=== PATIENT | female | born 2000 | race Caucasian/White ===

== ENCOUNTER 2024-08-03 16:03 | Emergency (ER) | payer BC, SELFPAY ==
[2024-08-03 16:30] VITALS: BP 130/87; PULSE 95; RESP 19; TEMP 37.4; O2SAT 99; BMI 30.6
--- NOTE | 2024-08-03 16:31 | EXP.UTC ---
Discharge Plan Disposition Patient Disposition: Home, Self-Care Condition: Good Prescriptions Prescriptions: New ondansetron 4 mg Tablet,Disintegrating 4 mg PO Q8H PRN (Reason: Nausea) Qty: 12 0RF Referrals Follow up/Referrals: Provider,Referral, MD [Primary Care Provider] - See instructions Activity Restrictions/Add. Instructions Additional Instructions/Restrictions: Drink plenty of fluids. Take the zofran (ondesetron) as directed for nausea. Follow up with your regular doctor. GO TO THE ER FOR ANY WORSENING SYMPTOMS Clinical Impressions Clinical Impression: Gastroenteritis, Diarrhea Stand Alone Forms Stand Alone Forms: Work/School Release Instructions Patient Instructions: Diarrhea, DI for Viral Gastroenteritis -- Adult, Ondansetron Print Language Print Language: Indonesian Discharge ED Provider: Kenneth Gomez [facility] [place] General Stated complaint: diarrhea, vomiting, h/a Time Seen by Provider: 08/03/24 16:31 History of Present Illness Provider Complaint: She states that for the past 5 weeks she has had diarrhea. She denies any blood in her stool. Over the past 2 days she has had n/v also. She denies any fever/chills. She denies any abdominal pain, but she has had cramping r/t the diarrhea. Related Data Previous Rx's ?Medication ?Instructions ?Recorded ondansetron 4 mg disintegrating 4 mg PO Q8H PRN Nausea #12 tabs 08/03/24 tablet Allergies Allergy/AdvReac Type Severity Reaction Status Date / Time No Known Allergies Allergy Verified 08/03/24 16:39 [facility] Disclaimer: The information contained in this section may have been updated after the patient was seen, as this information can be updated by other users. Medical History (Updated 08/03/24 @ 17:11 by Kenneth Gomez APRN) Asthma Surgical History (Updated 08/03/24 @ 16:39 by Tari Baer RN) History of tympanostomy tube placement History of tonsillectomy Social History Smoking Status: Never smoker alcohol intake: never current occupational status: employed Travel in the last 8 weeks: None ROS Obtained: Yes All systems reviewed & no additional complaints except as documented Constitutional Constitutional: Denies chills, Denies fever(s) and Reports poor appetite ENT Ears, Nose, Mouth, and Throat: Denies dizziness and Denies sore throat Cardiovascular Cardiovascular: Denies dyspnea Respiratory Respiratory: Denies chest congestion, Denies cough and Denies dyspnea Gastrointestinal Gastrointestingal: Reports as per HPI; Denies abdominal pain Genitourinary Female Genitourinary: Denies difficulty voiding, Denies dysuria, Denies hematuria, Denies urinary frequency, Denies urinary incontinence, Denies urinary hesitancy and Denies urinary urgency Musculoskeletal Musculoskeletal: Denies arthralgias Integumentary/Breasts Skin/Breast: Denies rash Neurologic Neurologic: Denies dizziness Physical Exam General General appearance: alert and in no apparent distress Head Head exam: atraumatic and normocephalic Eye Eye exam: Present normal appearance, PERRL and EOMI ENT ENT exam: Present normal exam, normal oropharynx, mucous membranes moist, TM's normal bilaterally and normal external ear exam Neck Neck exam: Present normal inspection, full ROM and trachea midline; Absent tenderness, meningismus or lymphadenopathy Chest Chest inspection: Present normal inspection and symmetric chest wall rise; Absent tenderness, rash or abscess Respiratory Respiratory exam: Present normal lung sounds bilaterally; Absent respiratory distress, wheezes or stridor Cardiovascular Cardiovascular exam: Present regular rate and normal rhythm; Absent irregular rhythm, systolic murmur, diastolic murmur or JVD Abdominal Exam Abdominal exam: Present soft and hyperactive bowel sounds; Absent distention, tenderness, guarding, rebound, rigidity, psoas sign, obturator sign, heel tap sign, Levine's sign, Rovsing's sign or tenderness at McBurney's Point Extremities Exam Extremities exam: Present normal inspection and full ROM; Absent tenderness Back Exam Back exam: Present normal inspection and full ROM; Absent tenderness, CVA tenderness (R) or CVA tenderness (L) Neurological Exam Neurological exam: Present alert, oriented X3 and CN II-XII intact Psychiatric Psychiatric exam: Present normal affect and normal mood Skin Skin exam: Present warm, dry, intact and normal color Lymphatic Lymphatic Findings: no adenopathy Medical Decision Making Medical Records Medical records reviewed: No I reviewed the patient's medical records. Screening: Per USPSTF and CDC recommendations, given the prevalence of disease in our region, it is our hospital?s policy to screen for HIV and viral Hepatitis for all patients aged 18 and over and those with ongoing risk factors. Jb Inquiry Pt receiving controlled substance: No Lab Data Lab results reviewed: Yes I reviewed the patient's lab results.
[2024-08-03 16:43] LABS: Microscopic, Urine URINE MICROSCOPIC (MICROSCOPIC)
[2024-08-03 16:52] LABS: UTC Pregnancy Test, Urine Negative (Negative); UTC Strep Screen (Rapid) Negative (Negative)
[2024-08-03 16:54] LABS: Appearance,Urine CLEAR (Clear); Blood, Urine Negative (Negative); Color,Urine YELLOW (Yellow); Glucose,Urine (UA) Negative (Negative); Ketones,Urine TRACE (Negative); Leukocyte Esterase,Urine Negative (Negative); Nitrate,Urine Negative (Negative); Protein,Urine TRACE (Negative); Specific Gravity, Urine >= 1.030 (1.005-1.030); Urobilinogen,Urine 0.2 EU/dl (0.2)
[2024-08-03 16:58] LABS: Bilirubin,Urine 1+ (Negative)
[2024-08-03 17:27] VITALS: BP 130/87; PULSE 95; RESP 19; TEMP 37.4; O2SAT 99
[2024-08-03 19:01] LABS: Bacteria,Urine 1+ /lpf
--- NOTE | 2024-08-04 14:07 | PC.NURSE ---
ANTIBIOTICS SENT IN FOR PATIENT PER Alec HUERTA APRN FOR UTI. ATTEMPTED TO CALL PATIENT TO NOTIFY HER WITH NO ANSWER. VOICE MAIL LEFT FOR PATIENT TO RETURN CALL.
--- NOTE | 2024-08-04 15:09 | PC.NURSE ---
SPOKE WITH PATIENT REGARDING NEW ANTIBIOTIC FOR UTI. PATIENT VERBALIZED UNDERSTANDING
== END 2024-08-03 17:31 | disposition home or self-care (01) ==
PROVIDERS: Emergency Provider Nurse Practitioner Family
DX: K52.9 Noninfective gastroenteritis and colitis, unspecified (principal); R11.2 Nausea with vomiting, unspecified; R51.9 Headache, unspecified; R63.8 Other symptoms and signs concerning food and fluid intake
CPT/HCPCS: 81001; 81025; 87880; 99212; G0381